=== PATIENT | female | born 1995 | race African-American/Black ===

== ENCOUNTER 2017-03-10 16:15 | Emergency (ER) | payer MEDICAID ==
[~2017-03-10] VITALS: Ht 149.9 cm; Wt 66.0 kg
[2017-03-10] MEDS ORDERED: ACETAMINOPHEN 325MG TABLET PO ONE (23:45)
[2017-03-11 00:25] VITALS: BP 108/62
[2017-03-13 05:17] LABS: CHLAMYDIA TRACHOMATIS NAA Negative (Negative); NEISSERIA GONORRHOEAE NAA Negative (Negative)
== END 2017-03-11 00:40 | disposition home or self-care (01) ==
LOC: ER 21:29
DX: N76.0 Acute vaginitis (principal); B37.3 Candidiasis of vulva and vagina; F17.210 Nicotine dependence, cigarettes, uncomplicated
CPT/HCPCS: 36415; 81025; 84702; 87210; 87491; 87591; 99284; Z7610

== ENCOUNTER 2017-03-16 09:15 | Emergency (ER) | payer MEDICAID ==
[~2017-03-16] VITALS: Ht 149.9 cm; Wt 70.0 kg
[2017-03-16 09:26] VITALS: BP 123/60
== END 2017-03-16 15:40 | disposition home or self-care (01) ==
LOC: ER 12:13
DX: T19.2XXA Foreign body in vulva and vagina, initial encounter (principal); N89.8 Other specified noninflammatory disorders of vagina; R10.9 Unspecified abdominal pain; X58.XXXA Exposure to other specified factors, initial encounter; Y93.89 Activity, other specified; Y92.89 Other specified places as the place of occurrence of the external cause; Y99.8 Other external cause status
CPT/HCPCS: 99284; Z7610

== ENCOUNTER 2017-12-25 16:17 | Emergency (ER) | payer MEDICAID ==
[~2017-12-25] VITALS: Ht 149.9 cm; Wt 73.0 kg
[2017-12-25 19:40] LABS: CLARITY URINE CLEAR (CLEAR); COLOR URINE YELLOW (YELLOW); KETONES URINE NEGATIVE (NEGATIVE); LEUKOCYTE ESTERASE URINE NEGATIVE (NEGATIVE); NITRITE URINE NEGATIVE (NEGATIVE); OCCULT BLOOD URINE NEGATIVE (NEGATIVE); PROTEIN URINE NEGATIVE (NEGATIVE); SPECIFIC GRAVITY URINE 1.021 (1.005-1.030)
[2017-12-25] MEDS ORDERED: SODIUM CHLORIDE 0.9% 1,000 ML IV ONE (22:03)
[2017-12-25] MEDS ORDERED: ACETAMINOPHEN 325MG TABLET PO ONE (22:30)
[2017-12-25 22:35] LABS: BASOPHILS % 0.9 % (0.0-2.0); EOSINOPHILS % 2.5 % (0.0-5.0); HEMATOCRIT. 36.2 % (36.0-48.0); HEMOGLOBIN. 12.7 g/dL (12.0-16.0); LYMPHOCYTES % 33.5 % (20.0-50.0); MEAN CORPUSCULAR HEMOGLOBIN 29.2 pg (28.0-32.0); MEAN CORPUSCULAR VOLUME 82.9 fL (81.0-99.0); MEAN PLATELET VOLUME 7.3 fl (7.4-10.4); MONOCYTES % 6.9 % (2.0-8.0); NEUTROPHILS % 56.2 % (40.0-76.0); PLATELET 228 x1000/uL (130-400); RED BLOOD CELL COUNT 4.37 mill/uL (4.2-5.4); RED CELL DISTRIBUTION WIDTH 13.7 % (11.6-14.6)
[2017-12-25 22:43] LABS: CHLORIDE 103 mEq/L (98-107)
[2017-12-25 23:02] LABS: B-HCG QUANTITATIVE 37799 mIU/mL (<3)
[2017-12-26 01:40] VITALS: BP 125/65
== END 2017-12-26 01:40 | disposition home or self-care (01) ==
LOC: ER 16:32
DX: O26.891 Other specified pregnancy related conditions, first trimester (principal); R10.30 Lower abdominal pain, unspecified; R35.0 Frequency of micturition; R39.15 Urgency of urination; Z3A.01 Less than 8 weeks gestation of pregnancy; Z87.442 Personal history of urinary calculi
CPT/HCPCS: 36415; 76770; 76801; 76817; 80053; 81003; 81025; 83690; 84702; 85025; 86850; 86900; 86901; 87086; 96360; 99285; J7030; Z7610